=== PATIENT | male | born 1935 | race Caucasian/White ===

== ENCOUNTER → 2017-08-07 | Day surgery (SDC) | payer MEDICARE, OTHER ==
[~2017-08-07] MED LIST: ACET-898 PO; ALLO300T2 PO; ASPI-516 CHEW; DILA100C PO; DULO1CAP3 PO; FURO1TAB60 PO; GLIP5TAB8 PO; HYDR-3516 PO; LEVEMIR SQ; LIDOCAINE HCL 1% 30 ML VIAL INFIL ONE; LISI-515 PO; MEPERIDINE HCL 25 MG/ML VIAL IV ONE; POTA10CA PO; PROPOFOL 200 MG/20 ML AMP IV ONE; SENN8.6T88 PO; SITA1TAB2 PO; SODIUM CHLORIDE 0.9% 10 ML VIAL ONE; SPIRCAP INH; TEMA30CA PO; TRIAMCINOLONE ACETONIDE 40 MG/ML VIAL NERV BLOCK ONE; ZOCO40TA PO
--- NOTE | 2017-08-07 11:05 | M6 ---
cc: Param Salazar MD DATE: 08/07/2017 PROCEDURE PERFORMED: Radiofrequency ablation of the left hip joint sensory branches left femoral nerve. DESCRIPTION OF PROCEDURE: IV was started. Blood pressure cuff, pulse oximeter and EKG were applied. The patient was placed in the prone position on a Vinay table, sedated with small amounts of Demerol and propofol titrated to effect. Vital signs were monitored and remained stable throughout the procedure. The left hip area was prepped with alcohol and 10% Betadine solution, draped with sterile drapes. Fluoroscopy was used to visualize the left acetabulum. The skin was infiltrated with 1% Xylocaine, using a 27-gauge needle. Then, an insulated 17-gauge radiofrequency needle was advanced to the anterior cephalad portion of the acetabulum and the anatomical location of the sensory branches from the femoral nerve. Three thermal lesions were made at 60 degrees centigrade x2-1/2 minutes. This was followed by injection of 40 mg of Kenalog. Following the procedure, the patient was taken to the recovery room with stable vital signs, neurologically intact. Param Salazar MD [facility]/TL , 10:51 AM , 11:03 AM
== END | disposition home or self-care (01) ==
LOC: PHSDC 08:46
PROVIDERS: ATTEND Pain Medicine Interventional Pain Medicine
DX: M25.552 Pain in left hip (principal); Z79.899 Other long term (current) drug therapy; Z79.4 Long term (current) use of insulin; E11.9 Type 2 diabetes mellitus without complications
CPT/HCPCS: 64640; 99152; 99153; J2175; J3301